=== PATIENT | female | born 1980 | race Caucasian/White ===

== ENCOUNTER 2016-12-18 16:56 | Emergency (ER) | payer BC ==
[~2016-12-18] VITALS: Ht 157.5 cm; Wt 70.0 kg
[2016-12-18 16:56] VITALS: BP 131/83
[2016-12-18] MEDS ORDERED: NAC500CA PO (17:14)
[2016-12-18] MEDS ORDERED: ZINCLOZ9 PO (17:14)
[2016-12-18] MEDS ORDERED: VITATAB11 PO (17:14)
[2016-12-18] MEDS ORDERED: VITA-122 PO (17:14)
== END 2016-12-18 18:00 | disposition left against medical advice (07) ==
LOC: M ED 16:56
DX: R10.9 Unspecified abdominal pain (principal); Z53.21 Procedure and treatment not carried out due to patient leaving prior to being seen by health care provider

== ENCOUNTER 2017-01-02 06:49 | Emergency (ER) | payer BC ==
[~2017-01-02] VITALS: Ht 157.5 cm; Wt 70.0 kg
[~2017-01-02 06:49] MED LIST: NAC500CA PO; VITA-122 PO; VITATAB11 PO; ZINCLOZ9 PO
[2017-01-02] MEDS ORDERED: FLUC150T PO (06:59)
[2017-01-02] MEDS ORDERED: FLUC10TA PO (06:59)
[2017-01-02] MEDS ORDERED: diphenhydrAMINE INJ 50MG/ML VIAL (J1200) IV ONE (07:30)
[2017-01-02] MEDS ORDERED: FAMOTIDINE IV BAG 20 MG in APPROPRIATE DILUENT 1 EA IV ONE (07:30)
[2017-01-02] MEDS ORDERED: methylPREDNISolone INJ 125 MG/2 ML VIAL (J2930) IV ONE (07:30)
[2017-01-02] MEDS ORDERED: PRED20TA PO (08:51)
[2017-01-02] MEDS ORDERED: PEPC1TAB4 PO (08:51)
[2017-01-02 09:04] VITALS: BP 112/72
== END 2017-01-02 09:05 | disposition home or self-care (01) ==
LOC: M ED 06:49
DX: R22.0 Localized swelling, mass and lump, head (principal); T78.40XA Allergy, unspecified, initial encounter; Y92.9 Unspecified place or not applicable; Y93.9 Activity, unspecified; I50.9 Heart failure, unspecified; M32.9 Systemic lupus erythematosus, unspecified; F17.200 Nicotine dependence, unspecified, uncomplicated; Z79.899 Other long term (current) drug therapy; Z88.8 Allergy status to other drugs, medicaments and biological substances
CPT/HCPCS: 96365; 96375; 99284; J1200; J2930

== ENCOUNTER 2017-03-02 11:10 | Emergency (ER) | payer BC ==
[~2017-03-02] VITALS: Ht 157.5 cm; Wt 66.8 kg
[~2017-03-02 11:10] MED LIST changes: +FLUC10TA PO; +FLUC150T PO; +PEPC1TAB4 PO; +PRED20TA PO
[2017-03-02 12:13] LABS: MEAN CORPUSCULAR HEMOGLOBIN 31.4 pg (27.0-33.0); MEAN CORPUSCULAR HGB CONC 34.5 g/dl (32.0-36.5); PLATELET COUNT, AUTOMATED 210 10^3/uL (150-450); RED CELL DISTRIBUTION WIDTH 12.1 % (11.5-14.5); WHITE BLOOD COUNT 12.8 10^3/uL (4.0-10.0)
[2017-03-02 12:31] LABS: CONTROL LINE HCG INT CTR LINE PRESENT
[2017-03-02 12:49] LABS: ALBUMIN/GLOBULIN RATIO 1.25 (1.00-1.93); ALKALINE PHOSPHATASE 58 U/L (45-117); ALT/SGPT 20 U/L (12-78); ANION GAP 10 MEQ/L (8-16); AST/SGOT 11 U/L (7-37); BILIRUBIN,DIRECT 0.1 MG/DL (0.0-0.2); BILIRUBIN,TOTAL 0.4 MG/DL (0.2-1.0); BLOOD UREA NITROGEN 12 MG/DL (7-18); CALCIUM LEVEL 8.5 MG/DL (8.5-10.1); CARBON DIOXIDE LEVEL 24 MEQ/L (21-32); CHLORIDE LEVEL 108 MEQ/L (98-107); CREATININE FOR GFR 1.06 MG/DL (0.55-1.02); GLOMERULAR FILTRATION RATE > 60.0 (>60); GLUCOSE, FASTING 94 MG/DL (70-105); POTASSIUM SERUM 3.8 MEQ/L (3.5-5.1); SODIUM LEVEL 142 MEQ/L (136-145); TOTAL PROTEIN 7.2 GM/DL (6.4-8.2)
[2017-03-02 13:45] LABS: METHADONE URINE NEGATIVE (NEGATIVE)
[2017-03-02 14:55] VITALS: BP 122/59
== END 2017-03-02 14:57 | disposition home or self-care (01) ==
LOC: M ED 11:10
DX: F32.9 Major depressive disorder, single episode, unspecified (principal); Z63.0 Problems in relationship with spouse or partner; Z79.899 Other long term (current) drug therapy; Z88.8 Allergy status to other drugs, medicaments and biological substances
CPT/HCPCS: 80048; 80076; 80307; 84443; 84703; 85027; 99284; G0480

== ENCOUNTER 2017-03-25 01:31 | Emergency (ER) | payer OTHER, BC ==
[2017-03-25] MEDS ORDERED: KETOROLAC 30 MG/ML VIAL (J1885) As Ordered (04:53)
[2017-03-25] MEDS: KETOROLAC 60 MG/2 ML VIAL (J1885) IM (04:56)
== END 2017-03-25 05:23 | disposition home or self-care (01) ==
LOC: M ED 01:31
DX: S90.32XA Contusion of left foot, initial encounter (principal); W22.8XXA Striking against or struck by other objects, initial encounter; Y92.9 Unspecified place or not applicable; Y93.9 Activity, unspecified; Y99.0 Civilian activity done for income or pay; J45.909 Unspecified asthma, uncomplicated; F32.9 Major depressive disorder, single episode, unspecified; F17.200 Nicotine dependence, unspecified, uncomplicated; Z79.899 Other long term (current) drug therapy; Z88.8 Allergy status to other drugs, medicaments and biological substances
CPT/HCPCS: J1885

== ENCOUNTER → 2018-05-17 | Outpatient (REF) | payer OTHER ==
[~2018-05-17] MED LIST changes: +KETO10TAB PO; +LEXA1TAB PO; -PEPC1TAB4 PO; +PEPC1TAB5 PO
[2018-05-17 15:34] LABS: APPEARANCE, URINE HAZY (CLEAR); BACTERIA, URINE AUTO NEGATIVE (NEGATIVE); BILIRUBIN, URINE AUTO NEGATIVE (NEGATIVE); BLOOD, URINE BLOOD NEGATIVE (NEGATIVE); COLOR, URINE YELLOW (YELLOW); GLUCOSE, URINE (UA) AUTO NEGATIVE (NEGATIVE); KETONE, URINE AUTO NEGATIVE (NEGATIVE); LEUKOCYTE ESTERASE, URINE AUTO NEGATIVE (NEGATIVE); NITRITE, URINE AUTO NEGATIVE (NEGATIVE); PROTEIN, URINE AUTO NEGATIVE (NEGATIVE); RBC, URINE AUTO 1 /HPF (0-3); SPECIFIC GRAVITY URINE AUTO 1.021 (1.002-1.035); SQUAMOUS EPITHELIAL CELL UR AU 5 /HPF (0-6); UROBILINOGEN, URINE AUTO 0.2 mg/dL (0.0-2.0); WBC, URINE AUTO 0 /HPF (0-3)
== END ==
LOC: M LAB REF 14:59
PROVIDERS: ATTEND Physician Assistant
DX: N39.0 Urinary tract infection, site not specified (principal)

== ENCOUNTER 2018-06-04 08:23 | Emergency (ER) | payer OTHER ==
[~2018-06-04] VITALS: Ht 157.5 cm; Wt 81.8 kg
[2018-06-04 08:49] VITALS: BP 134/69
[2018-06-04] MEDS ORDERED: ACETAMINOPHEN TAB 650MG DOSE (2X325MG) PO ONE (09:30)
--- NOTE | 2018-06-04 09:32 | REP ---
CT Head without contrast HISTORY: Fall COMPARISON: 06/12/2005 There is no intraparenchymal hemorrhage, acute infarct, mass or midline shift. The ventricular system is normal in appearance. There is no extra cerebral collection. There is no fracture. The visualized sinuses are clear. IMPRESSION: There is no intracranial lesion. Electronically Signed by Blas Mcgarry MD 06/04/2018 09:23 A
--- NOTE | 2018-06-04 09:34 | REP ---
CT cervical spine without contrast HISTORY: Fall COMPARISON: None There is no acute fracture or subluxation. There is no disc bulge or herniation. The spinal canal and neural foramina are patent. The intervertebral discs and vertebral bodies are normal in height. IMPRESSION: There is no acute fracture or subluxation. Electronically Signed by Blas Mcgarry MD 06/04/2018 09:26 A
[2018-06-05] MEDS ORDERED: PRED20TA (12:11)
[2018-06-05] MEDS ORDERED: METH75TA PO (15:41)
[2018-06-05] MEDS ORDERED: KETO10TAB PO (15:41)
[2018-06-05] MEDS ORDERED: DICL1GEL3 TOP (15:43)
== END 2018-06-04 09:41 | disposition home or self-care (01) ==
LOC: M ED 08:23
DX: S09.90XA Unspecified injury of head, initial encounter (principal); M54.9 Dorsalgia, unspecified; W00.0XXA Fall on same level due to ice and snow, initial encounter; Y92.89 Other specified places as the place of occurrence of the external cause; Y99.0 Civilian activity done for income or pay; J45.909 Unspecified asthma, uncomplicated; M32.9 Systemic lupus erythematosus, unspecified; F17.210 Nicotine dependence, cigarettes, uncomplicated; Z88.5 Allergy status to narcotic agent; Z88.8 Allergy status to other drugs, medicaments and biological substances; Z79.899 Other long term (current) drug therapy

== ENCOUNTER 2018-06-05 12:00 | Emergency (ER) | payer OTHER ==
[~2018-06-05] VITALS: Ht 157.5 cm; Wt 80.1 kg
[2018-06-05] MEDS ORDERED: PRED20TA (12:11)
[2018-06-05] MEDS ORDERED: KETOROLAC 60 MG/2 ML VIAL (J1885) IM ONE (14:45)
[2018-06-05] MEDS ORDERED: KETO10TAB PO (15:41)
[2018-06-05] MEDS ORDERED: METH75TA PO (15:41)
[2018-06-05] MEDS ORDERED: DICL1GEL3 TOP (15:43)
[2018-06-05 15:50] VITALS: BP 134/79
--- NOTE | 2018-06-05 16:03 | REP ---
LUMBOSACRAL SPINE SERIES: Five views of the lumbosacral spine are performed. There is no compression fracture or malalignment with normal lumbar lordosis. There is no spondylolysis or spondylolisthesis. There is slight disc space narrowing at L5-S1 with sclerosis of the facets at that level. Posterior elements are intact. Metallic clips are seen in the right upper quadrant. IMPRESSION: Mild degenerative changes at L5-S1. No fracture or dislocation. Electronically Signed by Art Banuelos MD 06/06/2018 11:09 A
== END 2018-06-05 15:51 | disposition home or self-care (01) ==
LOC: M ED 12:00
DX: S30.0XXA Contusion of lower back and pelvis, initial encounter (principal); M62.838 Other muscle spasm; W00.9XXA Unspecified fall due to ice and snow, initial encounter; Y92.89 Other specified places as the place of occurrence of the external cause; Y93.01 Activity, walking, marching and hiking; Y99.0 Civilian activity done for income or pay; I50.9 Heart failure, unspecified; M32.9 Systemic lupus erythematosus, unspecified; G43.109 Migraine with aura, not intractable, without status migrainosus; Z86.711 Personal history of pulmonary embolism; Z72.0 Tobacco use; Z79.899 Other long term (current) drug therapy; Z88.5 Allergy status to narcotic agent; Z88.8 Allergy status to other drugs, medicaments and biological substances
CPT/HCPCS: 72110; 96372; 99283; J1885

== ENCOUNTER → 2018-08-16 | Outpatient (CLI) | payer OTHER ==
[~2018-08-16] MED LIST changes: +DICL1GEL3 TOP; +E-Z-GAS II EFFERVESCENT PACKET (SODIUM BICARB./CITRIC ACID/SIMETHICONE) As Ordered ONE; +E-Z-HD 98% w/w 340GM SUSP BTL As Ordered ONE; +E-Z-PAQUE 96% w/w SUSP 176GM BTL As Ordered ONE; +METH75TA PO; +PRED20TA
--- NOTE | 2018-08-17 09:03 | REP ---
Examination Requested: Upper G.I. Series With KUB Reason For Exam: Epigastric pain Upper GI Air Contrast The procedure was performed by JOSE Ignacio, under the direct supervision of Dr. Banuelos. The images were reviewed with Dr. Banuelos. The glue plant operator film shows no organomegaly or pathological masses. The intestinal gas pattern appears normal. Liquid barium and gas producing crystals were given in the erect position as well as liquid barium in the prone oblique position in order to perform a double contrast upper GI examination. The oral and pharyngeal stages of deglutition were unremarkable. Esophageal transport is efficient and there is no esophagitis, stricture, or mucosal ring noted. There is a small hiatal hernia. Gastroesophageal reflux was not demonstrated throughout the course of this exam. The stomach solorio are normally outlined. The rugal folds are smooth and regular. There is no gastritis, neoplasm, ulcer disease noted. The duodenal solorio are normally outlined. The mucosal folds are smooth and regular. There is no duodenitis, peptic ulcer disease, or neoplasm noted. The visualized portion of the proximal small bowel appears normal in course and caliber. Impression: 1. Small hiatal hernia. 1.5 minutes of fluoroscopy time was utilized for this procedure. Reviewed by JOSE Mckeon 08/16/2018 05:33 P Electronically Signed by Art Banuelos MD 08/17/2018 08:54 A
== END ==
LOC: M RAD 10:18
PROVIDERS: ATTEND Physician Assistant Medical
DX: K44.9 Diaphragmatic hernia without obstruction or gangrene (principal)

== ENCOUNTER 2020-05-06 17:21 | Emergency (ER) | payer OTHER, SELFPAY ==
[~2020-05-06] VITALS: Ht 157.5 cm; Wt 75.8 kg
[~2020-05-06 17:21] MED LIST changes: -E-Z-GAS II EFFERVESCENT PACKET (SODIUM BICARB./CITRIC ACID/SIMETHICONE) As Ordered ONE; -E-Z-HD 98% w/w 340GM SUSP BTL As Ordered ONE; -E-Z-PAQUE 96% w/w SUSP 176GM BTL As Ordered ONE; +METH-1165 PO; -METH75TA PO
--- OUTSIDE RECORDS SUMMARY | 2020-05-06 17:29 | CCD ---
Author Author [facility] Organization [facility] Address Unknown Phone Unavailable Care Team Providers Care Graphite Pan Drier Tender Name Role Phone RING, K MAXINE PA Unavailable Unavailable RING, K MAXINE PA Unavailable Unavailable RING, K MAXINE PA Unavailable Unavailable RING, K MAXINE PA Unavailable Unavailable RING, K MAXINE PA Unavailable Unavailable RING, K MAXINE PA Unavailable Unavailable RING, K MAXINE PA Unavailable Unavailable RING, K MAXINE PA Unavailable Unavailable RING, K MAXINE PA Unavailable Unavailable RING, K MAXINE PA Unavailable Unavailable RING, K MAXINE PA Unavailable Unavailable RING, K MAXINE PA Unavailable Unavailable RING, K MAXINE PA Unavailable Unavailable RING, K MAXINE PA Unavailable Unavailable RING, K MAIXNE PA Unavailable Unavailable RING, K MAXINE PA Unavailable Unavailable RING, K MAXINE PA Unavailable Unavailable RING, K MAXINE PA Unavailable Unavailable RING, K MAXINE PA Unavailable Unavailable RING, K MAXINE PA Unavailable Unavailable RING, K MAXINE PA Unavailable Unavailable ARNULFO TIMMONS MD Unavailable Unavailable ARNULFO TIMMONS MD Unavailable Unavailable ARNULFO TIMMONS MD Unavailable Unavailable ARNULFO TIMMONS MD Unavailable Unavailable ARNULFO TIMMONS MD Unavailable Unavailable ARNULFO TIMMONS MD Unavailable Unavailable ARNULFO TIMMONS MD Unavailable Unavailable ARNULFO TIMMONS MD Unavailable Unavailable ARNULFO TIMMONS MD Unavailable Unavailable ARNULFO TIMMONS MD Unavailable Unavailable ARNULFO TIMMONS MD Unavailable Unavailable ARNULFO TIMMONS MD Unavailable Unavailable ARNULFO TIMMONS MD Unavailable Unavailable ARNULFO TIMMONS MD Unavailable Unavailable ARNULFO TIMMONS MD Unavailable Unavailable ARNULFO TIMMONS MD Unavailable Unavailable ARNULFO TIMMONS MD Unavailable Unavailable ARNULFO TIMMONS MD Unavailable Unavailable ARNULFO TIMMONS MD Unavailable Unavailable ARNULFO TIMMONS MD Unavailable Unavailable ARNULFO TIMMONS MD Unavailable Unavailable ARNULFO TIMMONS MD Unavailable Unavailable ARNULFO TIMMONS MD Unavailable Unavailable ARNULFO TIMMONS MD Unavailable Unavailable ARNULFO TIMMONS MD Unavailable Unavailable ARNULFO TIMMONS MD Unavailable Unavailable ARNULFO TIMMONS MD Unavailable Unavailable ARNULFO TIMMONS MD Unavailable Unavailable ARNULFO TIMMONS MD Unavailable Unavailable ARNULFO TIMMONS MD Unavailable Unavailable ARNULFO TIMMONS MD Unavailable Unavailable ARNULFO TIMMONS MD Unavailable Unavailable ARNULFO TIMMONS MD Unavailable Unavailable ARNULFO TIMMONS MD Unavailable Unavailable ARNULFO TIMMONS MD Unavailable Unavailable ARNULFO TIMMONS MD Unavailable Unavailable ARNULFO TIMMONS MD Unavailable Unavailable ARNULFO TIMMONS MD Unavailable Unavailable ARNULFO TIMMONS MD Unavailable Unavailable ARNULFO TIMMONS MD Unavailable Unavailable ARNULFO TIMMONS MD Unavailable Unavailable ARNULFO TIMMONS MD Unavailable Unavailable ARNULFO TIMMONS MD Unavailable Unavailable ARNULFO TIMMONS MD Unavailable Unavailable ARNULFO TIMMONS MD Unavailable Unavailable ARNULFO TIMMONS MD Unavailable Unavailable ARNULFO TIMMONS MD Unavailable Unavailable ARNULFO TIMMONS MD Unavailable Unavailable ARNULFO TIMMONS MD Unavailable Unavailable ARNULFO TIMMONS MD Unavailable Unavailable ARNULFO TIMMONS MD Unavailable Unavailable ARNULFO TIMMONS MD Unavailable Unavailable ARNULFO TIMMONS MD Unavailable Unavailable ARNULFO TIMMONS MD Unavailable Unavailable ARNULFO TIMMONS MD Unavailable Unavailable ARNULFO TIMMONS MD Unavailable Unavailable ARNULFO TIMMONS MD Unavailable Unavailable ARNULFO TIMMONS MD Unavailable Unavailable ARNULFO TIMMONS MD Unavailable Unavailable ARNULFO TIMMONS MD Unavailable Unavailable ARNULFO TIMMONS MD Unavailable Unavailable ARNULFO TIMMONS MD Unavailable Unavailable ARNULFO TIMMONS MD Unavailable Unavailable ARNULFO TIMMONS MD Unavailable Unavailable ARNULFO TIMMONS MD Unavailable Unavailable ARNULFO TIMMONS MD Unavailable Unavailable ARNULFO TIMMONS MD Unavailable Unavailable ARNULFO TIMMONS MD Unavailable Unavailable ARNULFO TIMMONS MD Unavailable Unavailable ARNULFO TIMMONS MD Unavailable Unavailable ARNULFO TIMMONS MD Unavailable Unavailable ARNULFO TIMMONS MD Unavailable Unavailable ARNULFO TIMMONS MD Unavailable Unavailable ARNULFO TIMMONS MD Unavailable Unavailable ARNULFO TIMMONS MD Unavailable Unavailable ARNULFO TIMMONS MD Unavailable Unavailable ARNULFO TIMMONS MD Unavailable Unavailable ARNULFO TIMMONS MD Unavailable Unavailable ARNULFO TIMMONS MD Unavailable Unavailable ARNULFO TIMMONS MD Unavailable Unavailable ARNULFO TIMMONS MD Unavailable Unavailable ARNULFO TIMMONS MD Unavailable Unavailable ARNULFO TIMMONS MD Unavailable Unavailable ARNULFO TIMMONS MD Unavailable Unavailable Re-disclosure Warning The records that you are about to access may contain information from federally-assisted alcohol or drug abuse programs. If such information is present, then the following federally mandated warning applies: This information has been disclosed to you from records protected by federal confidentiality rules (42 CFR part 2). The federal rules prohibit you from making any further disclosure of this information unless further disclosure is expressly permitted by the written consent of the person to whom it pertains or as otherwise permitted by 42 CFR part 2. A general authorization for the release of medical or other information is NOT sufficient for this purpose. The Federal rules restrict any use of the information to criminally investigate or prosecute any alcohol or drug abuse patient.The records that you are about to access may contain highly sensitive health information, the redisclosure of which is protected by Article 27-F of the [facility] Public Health law. If you continue you may have access to information: Regarding HIV / AIDS; Provided by facilities licensed or operated by the [facility] Office of Mental Health; or Provided by the [facility] Office for People With Developmental Disabilities. If such information is present, then the following [facility] mandated warning applies: This information has been disclosed to you from confidential records which are protected by state law. State law prohibits you from making any further disclosure of this information without the specific written consent of the person to whom it pertains, or as otherwise permitted by law. Any unauthorized further disclosure in violation of state law may result in a fine or residential sentence or both. A general authorization for the release of medical or other information is NOT sufficient authorization for further disc losure. Encounters Encounter Providers Location Date Indications Data Source(s ) Outpatient Attender: MAXINE Reyna 10/30/2019 08:15:00 AM EDT [facility] ([facility]) Outpatient Attender: CORRINE TIMMONS MD 04/24/2019 12:00:00 A M [facility] Outpatient Attender: CORRINE TIMMONS MD [id number] 2018 12:00:00 AM EDT - 06/27/2018 10:00:39 AM EDT Systemic involvement of connective tissu e, unspecified [facility] Systemic involvement of connective tissu e, unspecified Medications Medication Brand Name Start Date Product Form Dose Route Admi nistrative Instructions Pharmacy Instructions Status Indications Reaction Description Data Source(s) Ondansetron 4 MG Oral Tablet [Zofran] Zofran 10/30/2019 12:00:00 AM EDT ORAL active [facility] ([facility]) Unknown Medication For Migraine 10/30/2019 12:00:00 AM EDT active [facility] ([facility] Insurance Providers Payer name Policy type / Coverage type Policy ID Covered green party ID Covered green party's relationship to mukherjee Policy Mukherjee Plan Information [employer] [id number] SP U [id number] CIGNA U [id number] Self 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 [id number] SP [id number] ADITI DAVIDETT WORKER COMP [id number] SP [id number] MVP HEALTH CARE [id number] SP [id number] MVP H [id number] Self [id number] MVP EXCHANGE [id number] Self [id number] EXCELLUS H [id number] Self [id number] BLUE CROSS BLUE SHIELD [place] [id number] 18 [id number] BLUE CROSS BLUE SHIELD [id number] 18 [id number] [facility] O UNAVAILABLE S UNAVAILABLE PMA MANAGEMENT ANUP [facility] [id number] SP [id number] [place]/307 [id number] SP [id number] [place]/307 [id number] SP [id number] EXCELLUS BCBS B [id number] S VYS [id number] MEDICAID M [id number] S [id number] [place] P[place]/307 [id number] SP [id number] UN COMMUNITY PLAN MCDO [id number] SP [id number] SELF PAY UNAVAILABLE SP UNAVAILA BLE GHI FAMILY HLTH PLUS [id number] SP [id number] MEDICAID [id number] SP [id number] MEDICAID [id number] SP [id number] SELF PAY [id number] SP [id number] PCAP [place] [id number] SP [id number] Results ID Date Data Source 170 04/30/2020 12:00:00 AM EST [facility] Name Value Range Interpretation Code Description Data Antonia rce(s) Supporting Document(s) SARS-CoV2 Rapid Antigen Negative [facility] This lab was ordered by [facility] and reported by [facility]. Procedure Vital Signs ID Date Data Source UNK Name Value Range Interpretation Code Description Data Source(s) Body mass index (BMI) [Ratio] 29.3 kg/m2 29.3 k g/m2 [facility] ([facility]) Body height 62 [in_i] 62 [in_i] [facility] ([facility]) 5'2" Body weight 160.00 [lb_av] 160.00 [lb_av] [facility] ([facility]) Body temperature 97.9 [degF] 97.9 [degF] [facility] ([facility]) Oxygen saturation in Arterial blood by Pulse oximetry 99 % 99 % [facility] ([facility]) Respiratory rate 16 /min 16 /min [facility] ( [facility]) Heart rate 72 /min 72 /min [facility] ([facility]) Diastolic blood pressure 74 mm[Hg] 74 mm[Hg] [facility] ([facility]) Systolic blood pressure 110 mm[Hg] 110 mm[Hg] [facility] ([facility]) ID Date Data Source [id number] 06/19/2019 01:45:44 PM [facility] Name Value Range Interpretation Code Description Data Source(s) WEIGHT RECORDED 175.4 lb 175.4 lb [facility] Body height Measured 62.01 in 62.01 in [facility]
[2020-05-06] MEDS ORDERED: ASPIRIN 81 MG CHEW TABLET PO ONE (18:00)
--- NOTE | 2020-05-06 18:20 | REP ---
INDICATION: CHEST PAIN. COMPARISON: Chest 11/21/2016 TECHNIQUE: AP portable seated chest FINDINGS: Lung greenwood are well inflated. The CP angles are sharply defined there is no pleural effusion, lateral pleural thickening, apical scarring or pneumothorax. No dense consolidation, atelectasis or parenchymal mass. The heart, mediastinal and hilar contours are normal. The aorta and airway are grossly intact. Bones are unremarkable. No free air under the diaphragm. IMPRESSION: 1. No acute cardiopulmonary change. <Electronically signed by Warren Reno > 05/06/20 [id number]
[2020-05-06 18:34] LABS: HEMATOCRIT 40.4 % (36.0-47.0); MEAN CORPUSCULAR HGB CONC 34.7 g/dl (32.0-36.5); MEAN CORPUSCULAR VOLUME 89.6 fl (80.0-96.0); PLATELET COUNT, AUTOMATED 216 10^3/uL (150-450); RED BLOOD COUNT 4.51 10^6/uL (4.00-5.40)
--- OUTSIDE RECORDS SUMMARY | 2020-05-06 18:41 | CCD ---
Author Author [facility] Organization [facility] Address Unknown Phone Unavailable Care Team Providers Care Refuse Driver Name Role Phone RING, K MAXINE PA [...] is protected by Article 27-F of the [facility] Public Health law. If you continue you may have access to information: Regarding HIV / AIDS; Provided by facilities licensed or operated by the [facility] Office of Mental Health; or Provided by the [facility] Office for People With Developmental Disabilities. If such information is present, then the following [facility] mandated warning applies: This information has [...] law may result in a fine or halfway sentence or both. A general authorization for the release of medical or other information is NOT sufficient authorization for further disc losure. Encounters Encounter Providers Location Date Indications Data Source(s ) Outpatient Attender: MAXINE Reyna 10/30/2019 08:15:00 AM EDT [facility] ([facility]) Outpatient Attender: CORRINE TIMMONS MD 04/24/2019 12:00:00 A M [facility] Outpatient Attender: CORRINE TIMMONS MD [id number] 2018 12:00:00 AM EDT - 06/27/2018 10:00:39 AM EDT Systemic involvement of connective tissu e, unspecified [facility] Systemic involvement of connective tissu e, unspecified Medications Medication Brand Name Start Date Product Form Dose Route Admi nistrative Instructions Pharmacy Instructions Status Indications Reaction Description Data Source(s) Ondansetron 4 MG Oral Tablet [Zofran] Zofran 10/30/2019 12:00:00 AM EDT ORAL active [facility] ([facility]) Unknown Medication For Migraine 10/30/2019 12:00:00 AM EDT active [facility] ([facility]) Insurance Providers Payer name Policy type / Coverage type Policy ID Covered republican ID Covered republican's relationship to mukherjee Policy Mukherjee Plan Information SELF PAY ONLY [id number] SP [id number] [employer]NA HE[employer] [id number] SP U [id number] CIGNA U [id number] Self 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 [id number] SP [id number] [place] PPO [place]/307 [id number] SP [id number] BCBS [place] PPO 302/307 [id number] SP [id number] EXCELLUS BCBS B [id number] S VYS [id number] MEDICAID M [id number] S [id number] BCBS [place] PPO 302/307 [id number] SP [id number] [facility] COMMUNITY [facility]AN [facility] [id number] SP [id number] SELF PAY UNAVAILABLE SP UNAVAILA BLE GHI FAMILY HLTH PLUS [id number] SP [id number] MEDICAID [id number] SP [id number] MEDICAID [id number] SP [id number] SELF PAY [id number] SP [id number] PCAP [place] [id number] SP [id number] Results ID Date Data Source 170 04/30/2020 12:00:00 AM EST [facility] Name Value Range Interpretation Code Description Data Antonia rce(s) Supporting Document(s) SARS-CoV2 Rapid Antigen Negative [facility] This lab was ordered by [facility] and reported by [facility]. Procedure Vital Signs ID Date Data Source UNK Name Value Range Interpretation Code Description Data Source(s) Body mass index (BMI) [Ratio] 29.3 kg/m2 29.3 k g/m2 [facility] ([facility], [facility]) Body height 62 [in_i] 62 [in_i] [facility] ([facility], [facility]) 5'2" Body weight 160.00 [lb_av] 160.00 [lb_av] [facility] ([facility]) Body temperature 97.9 [degF] 97.9 [degF] [facility] ([facility]) Oxygen saturation in Arterial blood by Pulse oximetry 99 % 99 % [facility] ([facility]) Respiratory rate 16 /min 16 /min [facility] ( [facility]) Heart rate 72 /min 72 /min [facility] ([facility], [facility]) Diastolic blood pressure 74 mm[Hg] 74 mm[Hg] [facility] ([facility]) Systolic blood pressure 110 mm[Hg] 110 mm[Hg] M [facility] ([facility], [facility]) ID Date Data Source [id number] 06/19/2019 01:45:44 PM [facility] Name Value Range Interpretation Code Description Data Source(s) WEIGHT RECORDED 175.4 lb 175.4 lb [facility] Body height Measured 62.01 in 62.01 in [facility]
[2020-05-06 18:45] LABS: INR 0.91; PROTHROMBIN TIME 12.4 SECONDS (12.5-14.3)
[2020-05-06 18:48] LABS: D-DIMER QUANT 591.68 ng/ml (<500)
[2020-05-06 19:00] VITALS: BP 122/74
[2020-05-06 19:01] LABS: ALBUMIN 3.6 GM/DL (3.2-5.2); ALT/SGPT 31 U/L (12-78); BILIRUBIN,DIRECT < 0.1 MG/DL (0.0-0.2); BILIRUBIN,TOTAL 0.3 MG/DL (0.2-1.0); BLOOD UREA NITROGEN 6 MG/DL (7-18); CALCIUM LEVEL 8.8 MG/DL (8.5-10.1); CARBON DIOXIDE LEVEL 23 MEQ/L (21-32); CHLORIDE LEVEL 109 MEQ/L (98-107); CK-MB VALUE MASS < 1.0 NG/ML (<3.6); CPK CREATINE PHOSPHOKINASE 84 U/L (26-192); CREATININE FOR GFR 0.94 MG/DL (0.55-1.30); GLOMERULAR FILTRATION RATE > 60.0 (>60); GLUCOSE, FASTING 92 MG/DL (70-100); LIPASE 106 U/L (73-393); MB/CK RELATIVE INDEX 1.19 (< OR =4); POTASSIUM SERUM 3.5 MEQ/L (3.5-5.1); SODIUM LEVEL 138 MEQ/L (136-145); TOTAL PROTEIN 7.4 GM/DL (6.4-8.2); TROPONIN I < 0.02 NG/ML (< 0.10)
[2020-05-06] MEDS ORDERED: ISOVUE-370 76% 100ML VIAL As Ordered ONE (19:52)
[2020-05-06 20:19] LABS: ATYPICAL LYMPH 15 % (0-5); EOSINOPHILS 3 % (0-3); LYMPHOCYTES 40 % (16-44); MONOCYTES 1 % (0-5); NEUTROPHILS 41 % (28-66); PLATELET ESTIMATE NORMAL (NORMAL)
--- NOTE | 2020-05-07 19:39 | ECGEPIP ---
[facility] - ED Test Date: 2020-05-06 Pat Name: SHASHI CHEN Department: Room: - Gender: Female Outbound Sales Advisor: JEFF : 1980 Requested By: JAVED WYLIE Order Number: [id number] Reading MD: Kavitha Carson Measurements Intervals [place] Rate: 77 P: 38 ID: [id number] QRS: 63 QRSD: 86 T: 33 QT: 420 QTc: 475 Interpretive Statements Normal sinus rhythm ST & T wave abnormality, consider anterior ischemia, clinical correlation No prior Electronically Signed on 05-07-2020 19:38:57 EST by Kavitha Carson
== END 2020-05-06 20:01 | disposition left against medical advice (07) ==
LOC: M ED 17:21
DX: R07.89 Other chest pain (principal); Z53.9 Procedure and treatment not carried out, unspecified reason; I11.9 Hypertensive heart disease without heart failure; K21.9 Gastro-esophageal reflux disease without esophagitis; J45.909 Unspecified asthma, uncomplicated; F17.200 Nicotine dependence, unspecified, uncomplicated; Z88.6 Allergy status to analgesic agent; Z88.8 Allergy status to other drugs, medicaments and biological substances

== ENCOUNTER 2020-05-13 09:47 | Emergency (ER) | payer OTHER, SELFPAY ==
[~2020-05-13] VITALS: Ht 157.5 cm; Wt 75.8 kg
--- NOTE | 2020-05-13 10:58 | REP ---
INDICATION: fall injury COMPARISON: None. TECHNIQUE: AP, lateral, bilateral oblique views right wrist. FINDINGS: The carpal bones, surrounding osseous structures, soft tissues, and joint spaces are normal. There is no evidence for acute fracture or dislocation. No subcutaneous emphysema or radiodense foreign body. IMPRESSION: No acute fracture or dislocation. If the patient remains symptomatic consider re-evaluation in 3-5 days including scaphoid view if necessary. <Electronically signed by Geovanni Avina > 05/13/20 105
[2020-05-13] MEDS ORDERED: ACETAMINOPHEN 500 MG TAB PO ONE (11:40)
[2020-05-13 11:44] LABS: BASO # 0.1 10^3/uL (0.0-0.2); BASO % 0.7 % (0.0-1.0); EOS # 0.1 10^3/uL (0.0-0.5); EOS % 1.7 % (0.0-3.0); HEMATOCRIT 41.6 % (36.0-47.0); LYMPH # 2.9 10^3/uL (1.5-5.0); LYMPH % 35.2 % (24.0-44.0); MEAN CORPUSCULAR HEMOGLOBIN 30.6 pg (27.0-33.0); MEAN CORPUSCULAR HGB CONC 33.7 g/dl (32.0-36.5); MONO # 0.7 10^3/uL (0.0-0.8); MONO % 8.3 % (2.0-8.0); NEUTROPHILS # 4.5 10^3/uL (1.5-8.5); PLATELET COUNT, AUTOMATED 237 10^3/uL (150-450); RED BLOOD COUNT 4.57 10^6/uL (4.00-5.40); WHITE BLOOD COUNT 8.2 10^3/uL (4.0-10.0)
--- NOTE | 2020-05-13 11:53 | REP ---
INDICATION: fall COMPARISON: None. TECHNIQUE: AP and lateral views of the right tibia/fibula. FINDINGS: The osseous structures and joint spaces are intact and normal. There is no evidence for acute fracture or dislocation. Surrounding soft tissues are unremarkable. No subcutaneous emphysema or radiodense foreign body. IMPRESSION: . No acute fracture or dislocation. <Electronically signed by Geovanni Avina > 05/13/20 1148
--- NOTE | 2020-05-13 11:53 | REP ---
INDICATION: Abdominal Pain COMPARISON: 05/06/2020 TECHNIQUE: PA and lateral. FINDINGS: The mediastinum and cardiac silhouette are normal. The lung greenwood are clear and without acute consolidation, effusion, or pneumothorax. The skeletal structures are intact and normal. IMPRESSION: No acute cardiopulmonary process. <Electronically signed by Geovanni Avina > 05/13/20 1141
[2020-05-13 12:00] LABS: INR 0.96
[2020-05-13 12:01] LABS: PARTIAL THROMBOPLASTIN TIME 32.2 SECONDS (24.2-38.5)
[2020-05-13 12:04] LABS: D-DIMER QUANT 621.68 ng/ml (<500)
[2020-05-13 12:13] LABS: ALBUMIN 3.9 GM/DL (3.2-5.2); ALT/SGPT 28 U/L (12-78); BILIRUBIN,DIRECT 0.1 MG/DL (0.0-0.2); BILIRUBIN,TOTAL 0.4 MG/DL (0.2-1.0); BLOOD UREA NITROGEN 7 MG/DL (7-18); CARBON DIOXIDE LEVEL 26 MEQ/L (21-32); CHLORIDE LEVEL 108 MEQ/L (98-107); CK-MB VALUE MASS < 1.0 NG/ML (<3.6); CPK CREATINE PHOSPHOKINASE 112 U/L (26-192); CREATININE FOR GFR 0.93 MG/DL (0.55-1.30); GLOMERULAR FILTRATION RATE > 60.0 (>60); GLUCOSE, FASTING 93 MG/DL (70-100); LIPASE 94 U/L (73-393); MB/CK RELATIVE INDEX 0.89 (< OR =4); POTASSIUM SERUM 3.7 MEQ/L (3.5-5.1); SODIUM LEVEL 140 MEQ/L (136-145); TOTAL PROTEIN 7.8 GM/DL (6.4-8.2); TROPONIN I < 0.02 NG/ML (< 0.10)
[2020-05-13] MEDS ORDERED: ISOVUE-370 76% 100ML VIAL As Ordered ONE (12:24)
--- NOTE | 2020-05-13 12:46 | REP ---
INDICATION: CP, h/o PE, elevated dimer, r/o PE COMPARISON: 01/31/2005 TECHNIQUE: Axial contrast enhanced images from the thoracic inlet to the upper abdomen using pulmonary embolus technique with multiplanar re-formations. 75 ml Isovue 370 intravenous contrast material administered without complication. This CT examination was performed using the following dose reduction techniques: Automated exposure control, adjustment of mA and/or kv according to the patient's size, and use of iterative reconstruction technique. FINDINGS: Satisfactory enhancement of the pulmonary vasculature is achieved and no filling defects are identified to suggest pulmonary embolus. Further evaluation of the mediastinum demonstrates normal thoracic aorta, heart and pericardium. The bilateral lung greenwood are well aerated and clear without consolidation pleural effusion or pneumothorax. Tracheobronchial tree is patent. No nodule or mass lesion is identified. No adenopathy noted. Surrounding musculoskeletal structures intact IMPRESSION: No evidence for pulmonary embolus. No acute mediastinal or pleural parenchymal process. <Electronically signed by Geovanni Avina > 05/13/20 [id number]
[2020-05-13 13:39] VITALS: BP 138/78
--- NOTE | 2020-05-13 17:14 | ECGEPIP ---
[facility] - ED Test Date: 2020-05-13 Pat Name: SHASHI CHEN Department: Room: - Gender: Female Border Inspector: : 1980 Requested By: RAGHU Prado PA-C Order Number: [id number] Reading MD: Kavitha Carson Measurements Intervals [place] Rate: 64 P: 16 [place]: 170 QRS: 56 QRSD: 96 T: 33 QT: 460 QTc: 474 Interpretive Statements Normal sinus rhythm NSTTW abnormalities decreased rate 05/06/20 Electronically Signed on 05-13-2020 17:14:20 EST by Kavitha Carson
== END 2020-05-13 13:51 | disposition home or self-care (01) ==
LOC: M ED 09:47
DX: S80.11XA Contusion of right lower leg, initial encounter (principal); S30.0XXA Contusion of lower back and pelvis, initial encounter; S63.8X1A Sprain of other part of right wrist and hand, initial encounter; R07.89 Other chest pain; W10.8XXA Fall (on) (from) other stairs and steps, initial encounter; Y92.89 Other specified places as the place of occurrence of the external cause; Y93.9 Activity, unspecified; Y99.0 Civilian activity done for income or pay; I50.9 Heart failure, unspecified; J45.909 Unspecified asthma, uncomplicated; M32.9 Systemic lupus erythematosus, unspecified; Z86.711 Personal history of pulmonary embolism; F33.9 Major depressive disorder, recurrent, unspecified; F41.9 Anxiety disorder, unspecified; F17.200 Nicotine dependence, unspecified, uncomplicated; Z88.6 Allergy status to analgesic agent; Z88.8 Allergy status to other drugs, medicaments and biological substances; Z79.899 Other long term (current) drug therapy
CPT/HCPCS: 36415; 71046; 71275; 73110; 73590; 80048; 80076; 82550; 82553; 83690; 84484; 85025; 85379; 85610; 85730; 93005; 99284; Q9967

== ENCOUNTER → 2020-10-01 | Outpatient (CLI) | payer SELFPAY ==
[~2020-10-01] MED LIST changes: +DICY10CA13 PO; +OMEP40CA4 PO
--- NOTE | 2020-10-01 14:50 | REP ---
INDICATION: GASTROPARESIS. COMPARISON: None. TECHNIQUE/RADIOTRACER AND DOSE: 1.06 mCi of Technetium-99m sulfur colloid was ingested in two scrambled eggs and 6 ounces of water and sequential anterior and posterior images are acquired for an 89-minute imaging observation period. Regions of interest are drawn around the stomach to plot gastric emptying. FINDINGS: Expected T1/2 is 90 minutes. Twenty-six% emptying is observed in this patient during the 89-minute imaging observation period, for a calculated T1/2 in this patient of 194 minutes. IMPRESSION: Delayed gastric emptying.. <Electronically signed by Sudarshan Desir > 10/01/20 1028
== END ==
LOC: M RAD 12:44
PROVIDERS: ATTEND Internal Medicine Gastroenterology
DX: K31.84 Gastroparesis (principal); R10.13 Epigastric pain
CPT/HCPCS: 78264; A9541

== ENCOUNTER → 2020-10-02 | Outpatient (CLI) | payer SELFPAY | LOC: M LABSMTC 11:29 | PROVIDERS: ATTEND Anesthesiology | DX: Z20.828 Contact with and (suspected) exposure to other viral communicable diseases (principal); Z11.59 Encounter for screening for other viral diseases ==

== ENCOUNTER 2020-10-07 12:03 | Day surgery (SDC) | payer SELFPAY ==
[~2020-10-07] VITALS: Ht 157.5 cm; Wt 84.8 kg
[~2020-10-07 12:03] MED LIST changes: +NS 1,000 ML IV ONE; +fentaNYL 100 MCG/2 ML INJECTION (J3010) As Ordered ONE
[2020-10-07] MEDS ORDERED: LIDOCAINE 2% 100MG/5ML SDV (FOR ANES.) As Ordered ONE (12:28)
[2020-10-07] MEDS ORDERED: propofoL 200 MG/20 ML VIAL As Ordered ONE (12:28)
[2020-10-07] MEDS ORDERED: ONDANSETRON 4MG/2ML VIAL As Ordered ONE (14:21)
--- NOTE | 2020-10-07 14:24 | ROOR ---
Patient Name: Shilpa Nicholas Procedure Date: 10/07/2020 2:06 PM Date of : 1980 Age: 39 Room: [facility] Gender: Female Note Status: Finalized Procedure: Upper GI endoscopy Indications: Dyspepsia, Heartburn, Gastroparesis Providers: Myron Ladd MD Referring MD: LEEANN Campbell Requesting Provider: Medicines: Monitored Anesthesia Care Complications: No immediate complications. Procedure: Pre-Anesthesia Assessment: - The heart rate, respiratory rate, oxygen saturations, blood pressure, adequacy of pulmonary ventilation, and response to care were monitored throughout the procedure. The Endoscope was introduced through the mouth, and advanced to the second part of duodenum. The upper GI endoscopy was accomplished without difficulty. The patient tolerated the procedure well. Findings: Mildly severe esophagitis was found at the gastroesophageal junction. Biopsies were taken with a cold forceps for histology. The entire examined stomach was normal. Biopsies were taken with a cold forceps for Helicobacter pylori testing. The examined duodenum was normal. Impression: - Mildly severe reflux esophagitis. Rule out Granado's esophagus. Biopsied. - Normal stomach. Biopsied. - Normal examined duodenum. Recommendation: - Gastroparesis diet: - Eat smaller, more frequent meals throughout the day. - Low fat diet. - Liquid/soft foods are tolerated better than solid foods. - Low fiber/well cooked vegetables are tolerated better than high fiber/fibrous foods/raw vegetables. - Avoid medications that inhibit gastric/intestinal motility such as narcotic medications. - Check Thyroid function & HbA1C (will mail you lab slips). Procedure Code(s): --- Professional --- 81214, Esophagogastroduodenoscopy, flexible, transoral; with biopsy, single or multiple Diagnosis Code(s): --- Professional --- K31.84, Gastroparesis R12, Heartburn R10.13, Epigastric pain K21.0, Gastro-esophageal reflux disease with esophagitis CPT copyright 2019 [employer]. All rights reserved. The codes documented in this report are preliminary and upon upper cutter machine review may be revised to meet current compliance requirements. Myron Ladd MD Myron Ladd MD 10/07/2020 2:24:18 PM Electronically signed by Myron Ladd MD Number of Addenda: 0 Note Initiated On: 10/07/2020 2:06 PM Estimated Blood Loss: Estimated blood loss: none.
[2020-10-07 14:45] VITALS: BP 140/67
== END 2020-10-07 14:50 | disposition home or self-care (01) ==
LOC: M OPP 12:03
PROVIDERS: ATTEND Internal Medicine Gastroenterology
DX: K31.84 Gastroparesis (principal); K26.0 Acute duodenal ulcer with hemorrhage; K30 Functional dyspepsia; M32.9 Systemic lupus erythematosus, unspecified; R07.9 Chest pain, unspecified; Z88.5 Allergy status to narcotic agent; Z88.8 Allergy status to other drugs, medicaments and biological substances
CPT/HCPCS: 43239; 88305; J2405; J3010

== ENCOUNTER → 2020-10-28 | Outpatient (CLI) | payer SELFPAY ==
[~2020-10-28] MED LIST changes: -NS 1,000 ML IV ONE; -fentaNYL 100 MCG/2 ML INJECTION (J3010) As Ordered ONE
[2020-10-28 13:39] LABS: HEMOGLOBIN A1c 5.5 %
[2020-10-28 13:51] LABS: FREE T4 1.17 NG/DL (0.76-1.46); THYROID STIMULATING HORMONE 0.907 uIU/ML (0.358-3.740)
== END ==
LOC: M LAB 11:54
PROVIDERS: ATTEND Internal Medicine Gastroenterology
DX: K31.84 Gastroparesis (principal)

== ENCOUNTER → 2020-11-24 | Outpatient (CLI) | payer SELFPAY ==
--- NOTE | 2020-11-24 09:44 | REP ---
INDICATION: PAIN IN RIGHT KNEE COMPARISON: None. TECHNIQUE: AP, lateral, bilateral oblique and sunrise views. FINDINGS: Subtle increased sclerosis along the medial tibial plateau with subtle joint space narrowing is appreciated. [place] view demonstrates sclerosis and fraying along the anterior patellar margin. No further significant degenerative changes are identified. No evidence for acute or healed injury. No obvious effusion. IMPRESSION: Mild early arthritic changes.. <Electronically signed by Geovanni Avina > 11/24/20 0912
== END ==
LOC: M ADAMS 09:06
PROVIDERS: ATTEND Physician Assistant
DX: M17.11 Unilateral primary osteoarthritis, right knee (principal)

== ENCOUNTER → 2021-06-28 | Outpatient (REF) | payer BC ==
[~2021-06-28] MED LIST changes: -FLUC150T PO; +FLUC150T9 PO
[2021-06-28 13:09] LABS: BASO # 0.1 10^3/uL (0.0-0.2); EOS # 0.3 10^3/uL (0.0-0.5); EOS % 3.5 % (0.0-3.0); HEMATOCRIT 42.8 % (36.0-47.0); HEMOGLOBIN 14.3 g/dl (12.0-15.5); LYMPH # 2.6 10^3/uL (1.5-5.0); MEAN CORPUSCULAR HGB CONC 33.4 g/dl (32.0-36.5); MEAN CORPUSCULAR VOLUME 95.7 fl (80.0-96.0); MONO # 0.4 10^3/uL (0.0-0.8); NEUTROPHILS # 3.9 10^3/uL (1.5-8.5); NEUTROPHILS % 53.2 % (36.0-66.0); PLATELET COUNT, AUTOMATED 208 10^3/uL (150-450); RED BLOOD COUNT 4.47 10^6/uL (4.00-5.40); WHITE BLOOD COUNT 7.3 10^3/uL (4.0-10.0)
[2021-06-28 13:40] LABS: ALBUMIN 3.8 GM/DL (3.2-5.2); ALT/SGPT 91 U/L (12-78); BILIRUBIN,TOTAL 0.4 MG/DL (0.2-1.0); BLOOD UREA NITROGEN 6 MG/DL (7-18); CARBON DIOXIDE LEVEL 23 MEQ/L (21-32); CHLORIDE LEVEL 109 MEQ/L (98-107); COMPLEMENT C3 137 MG/DL (90-180); COMPLEMENT C4 32 MG/DL (10-40); CREATININE FOR GFR 0.85 MG/DL (0.55-1.30); GLOMERULAR FILTRATION RATE > 60.0 (>60); GLUCOSE, FASTING 125 MG/DL (70-100); POTASSIUM SERUM 3.9 MEQ/L (3.5-5.1); SODIUM LEVEL 140 MEQ/L (136-145); TOTAL PROTEIN 7.4 GM/DL (6.4-8.2)
[2021-06-30 09:41] LABS: DRVV SCREEN 43.9 SEC
[2021-06-30 09:42] LABS: PTT LUPUS TYPE ANTICOAG SCREEN 1.2 (0-1.2)
[2021-06-30 09:50] LABS: DRVV CONFIRM 39.2 SEC
[2021-06-30 09:53] LABS: NORMALIZED RATIO 1.2 (0.00-1.20)
[2021-06-30 23:08] LABS: ANA (HEP2) Positive (.); ANTI DS-DNA AB Negative (Negative); CARDIOLIPIN IGA ANTIBODY <9 APL U/mL (0-11); CARDIOLIPIN IGG ANTIBODY <9 GPL U/mL (0-14); CARDIOLIPIN IGM ANTIBODY 25 MPL U/mL (0-12); CYCLIC CITRULLINATED PEPTIDE 4 units (0-19)
[2021-07-02 13:12] LABS: HEXAGONAL PHASE PHOSPHOLIPID 4 sec (0-11)
== END ==
LOC: M SFHCADAM 08:54
PROVIDERS: ATTEND Physician Assistant Medical
DX: M32.9 Systemic lupus erythematosus, unspecified (principal)

== ENCOUNTER → 2021-07-13 | Outpatient (REF) | payer BC | LOC: M SFHCPLAZ 16:57 | PROVIDERS: ATTEND Physician Assistant | DX: R10.9 Unspecified abdominal pain (principal) ==

== ENCOUNTER → 2021-08-18 | Outpatient (CLI) | payer BC | LOC: M RAD 08:23 | PROVIDERS: ATTEND Family Medicine | DX: R10.11 Right upper quadrant pain (principal) ==

== ENCOUNTER → 2021-08-30 | Outpatient (REF) | payer BC ==
[2021-08-30 14:33] LABS: FERRITIN 140 NG/ML (8-252); IRON (FE) 55 UG/DL (50-170); PERCENT SATURATION 15.8 % (13.2-45.0); TOTAL IRON BINDING CAPACITY 348 UG/DL (250-450)
[2021-08-30 14:41] LABS: HEPATITIS B SURFACE ANTIBODY NEGATIVE (POSITIVE)
[2021-08-30 14:51] LABS: HEPATITIS B SURFACE ANTIGEN NEGATIVE (NEGATIVE)
[2021-08-30 15:20] LABS: HEPATITIS B CORE ANTIBODY IGM NEGATIVE (NEGATIVE); HIV 1&2 SCREEN CENTAUR NEGATIVE (NEGATIVE)
== END ==
LOC: M SFHCADAM 08:07
PROVIDERS: ATTEND Family Medicine
DX: K76.0 Fatty (change of) liver, not elsewhere classified (principal); R05.9 Cough, unspecified; R61 Generalized hyperhidrosis
CPT/HCPCS: 82384; 82390; 82525; 82728; 82784; 82787; 83550; 86376; 86480; 86705; 86706; 86708; 87340; 87389; G0472

== ENCOUNTER → 2021-10-28 | Outpatient (CLI) | payer BC | LOC: M ADAMS 14:54 | PROVIDERS: ATTEND Family Medicine | DX: M25.551 Pain in right hip (principal) ==

== ENCOUNTER → 2021-12-29 | Outpatient (CLI) | payer BC ==
[2021-12-29 12:36] LABS: BASO # 0.1 10^3/uL (0.0-0.2); BASO % 0.7 % (0.0-1.0); EOS # 0.2 10^3/uL (0.0-0.5); EOS % 2.1 % (0.0-3.0); HEMATOCRIT 44.7 % (36.0-47.0); LYMPH # 3.5 10^3/uL (1.5-5.0); LYMPH % 42.2 % (24.0-44.0); MEAN CORPUSCULAR HEMOGLOBIN 31.8 pg (27.0-33.0); MEAN CORPUSCULAR HGB CONC 33.6 g/dl (32.0-36.5); MEAN CORPUSCULAR VOLUME 94.9 fl (80.0-96.0); MONO # 0.5 10^3/uL (0.0-0.8); MONO % 5.4 % (2.0-8.0); NEUTROPHILS # 4.1 10^3/uL (1.5-8.5); NEUTROPHILS % 49.2 % (36.0-66.0); PLATELET COUNT, AUTOMATED 221 10^3/uL (150-450); RED BLOOD COUNT 4.71 10^6/uL (4.00-5.40); WHITE BLOOD COUNT 8.4 10^3/uL (4.0-10.0)
[2021-12-29 13:22] LABS: ALBUMIN 3.9 GM/DL (3.2-5.2); ALT/SGPT 62 U/L (12-78); BILIRUBIN,TOTAL 0.5 MG/DL (0.2-1.0); BLOOD UREA NITROGEN 8 MG/DL (7-18); CALCIUM LEVEL 9.1 MG/DL (8.5-10.1); CARBON DIOXIDE LEVEL 23 MEQ/L (21-32); CHLORIDE LEVEL 107 MEQ/L (98-107); FREE T4 1.17 NG/DL (0.76-1.46); GLOMERULAR FILTRATION RATE > 60.0 (>58); GLUCOSE, FASTING 94 MG/DL (70-100); POTASSIUM SERUM 4.1 MEQ/L (3.5-5.1); SODIUM LEVEL 136 MEQ/L (136-145); THYROID STIMULATING HORMONE 0.976 uIU/ML (0.358-3.740); TOTAL PROTEIN 7.9 GM/DL (6.4-8.2)
== END ==
LOC: M LAB 11:01
PROVIDERS: ATTEND Internal Medicine Gastroenterology
DX: R10.2 Pelvic and perineal pain (principal)

== ENCOUNTER → 2022-01-12 | Outpatient (CLI) | payer BC | LOC: M ADAMS 13:37 | PROVIDERS: ATTEND Physician Assistant | DX: M79.671 Pain in right foot (principal) ==

== ENCOUNTER → 2022-01-24 | Outpatient (CLI) | payer BC ==
[~2022-01-24] MED LIST changes: +GASTROGRAFIN SOLUTION 30ML As Ordered ONE; +ISOVUE-370 76% 100ML VIAL As Ordered ONE
== END ==
LOC: M RAD 15:01
PROVIDERS: ATTEND Internal Medicine Gastroenterology
DX: R10.31 Right lower quadrant pain (principal); R10.815 Periumbilic abdominal tenderness; K35.80 Unspecified acute appendicitis

== ENCOUNTER → 2022-02-20 | Outpatient (CLI) | payer BC ==
[~2022-02-20] MED LIST changes: -GASTROGRAFIN SOLUTION 30ML As Ordered ONE; -ISOVUE-370 76% 100ML VIAL As Ordered ONE
== END ==
LOC: M LABSMTC 11:27
PROVIDERS: ATTEND Anesthesiology
DX: Z01.812 Encounter for preprocedural laboratory examination (principal); Z20.822 Contact with and (suspected) exposure to COVID-19

== ENCOUNTER 2022-02-22 08:01 | Day surgery (SDC) | payer BC ==
[~2022-02-22] VITALS: Ht 157.5 cm; Wt 78.5 kg
[~2022-02-22 08:01] MED LIST changes: +NS 1,000 ML IV ONE
[2022-02-22] MEDS ORDERED: propofoL 500 MG/50 ML VIAL As Ordered ONE (08:59)
[2022-02-22] MEDS ORDERED: LIDOCAINE 2% 100MG/5ML SDV (FOR ANES.) As Ordered ONE (09:00)
[2022-02-22 09:46] VITALS: BP 105/58
== END 2022-02-22 10:00 | disposition home or self-care (01) ==
LOC: M OPP 08:01
PROVIDERS: ATTEND Internal Medicine Gastroenterology
DX: D12.0 Benign neoplasm of cecum (principal); K64.8 Other hemorrhoids; Z79.899 Other long term (current) drug therapy; Z88.5 Allergy status to narcotic agent; Z88.8 Allergy status to other drugs, medicaments and biological substances; F17.200 Nicotine dependence, unspecified, uncomplicated; F32.9 Major depressive disorder, single episode, unspecified; M32.9 Systemic lupus erythematosus, unspecified; J45.909 Unspecified asthma, uncomplicated; I50.9 Heart failure, unspecified; K31.84 Gastroparesis; G43.909 Migraine, unspecified, not intractable, without status migrainosus

== ENCOUNTER → 2022-04-11 | Outpatient (CLI) | payer BC ==
[~2022-04-11] MED LIST changes: -NS 1,000 ML IV ONE
== END ==
LOC: M WHC 15:55
PROVIDERS: ATTEND Obstetrics & Gynecology
DX: Z12.31 Encounter for screening mammogram for malignant neoplasm of breast (principal); N63.11 Unspecified lump in the right breast, upper outer quadrant; N63.21 Unspecified lump in the left breast, upper outer quadrant

== ENCOUNTER → 2022-05-17 | Outpatient (CLI) | payer BC | LOC: M WHC 15:08 | PROVIDERS: ATTEND Obstetrics & Gynecology | DX: R92.2 Inconclusive mammogram (principal); N60.12 Diffuse cystic mastopathy of left breast; N60.11 Diffuse cystic mastopathy of right breast | CPT/HCPCS: 76641; 77066; G0279 ==

== ENCOUNTER → 2022-05-24 | Outpatient (CLI) | payer BC ==
[~2022-05-24] MED LIST changes: +**SFHN** LIDOCAINE 1% MDV 20ML VIAL ONE; +**SFHN** SODIUM BICARBONATE 8.4% 10MEQ 10ML VIAL ONE
[2022-05-24 13:26] VITALS: BP 110/78
== END ==
LOC: M WHCPRO 12:34
PROVIDERS: ATTEND Obstetrics & Gynecology
DX: R92.8 Other abnormal and inconclusive findings on diagnostic imaging of breast (principal); N63.14 Unspecified lump in the right breast, lower inner quadrant; R92.0 Mammographic microcalcification found on diagnostic imaging of breast

== ENCOUNTER → 2022-10-17 | Outpatient (CLI) | payer BC ==
[~2022-10-17] MED LIST changes: -**SFHN** LIDOCAINE 1% MDV 20ML VIAL ONE; -**SFHN** SODIUM BICARBONATE 8.4% 10MEQ 10ML VIAL ONE; +DICL100G10 TOP; -DICL1GEL3 TOP; +DICY-61 PO; -DICY10CA13 PO
== END ==
LOC: M PLAIMG 15:06
PROVIDERS: ATTEND Physician Assistant
DX: F33.1 Major depressive disorder, recurrent, moderate (principal); R94.02 Abnormal brain scan

== ENCOUNTER → 2022-11-07 | Outpatient (CLI) | payer BC ==
[2022-11-07 17:02] LABS: BASO % 0.4 % (0.0-1.0); EOS # 0.1 10^3/uL (0.0-0.5); HEMATOCRIT 39.6 % (36.0-47.0); HEMOGLOBIN 13.7 g/dl (12.0-15.5); LYMPH # 3.8 10^3/uL (1.5-5.0); MEAN CORPUSCULAR HEMOGLOBIN 31.4 pg (27.0-33.0); MEAN CORPUSCULAR HGB CONC 34.6 g/dl (32.0-36.5); MEAN CORPUSCULAR VOLUME 90.8 fl (80.0-96.0); MONO # 0.6 10^3/uL (0.0-0.8); MONO % 6.1 % (2.0-8.0); NEUTROPHILS # 4.6 10^3/uL (1.5-8.5); NEUTROPHILS % 50.4 % (36.0-66.0); PLATELET COUNT, AUTOMATED 242 10^3/uL (150-450); RED BLOOD COUNT 4.36 10^6/uL (4.00-5.40); WHITE BLOOD COUNT 9.1 10^3/uL (4.0-10.0)
[2022-11-07 17:18] LABS: ERYTHROCYTE SEDIMENTATION RATE 19 mm/hr (0-20)
[2022-11-07 17:21] LABS: URIC ACID 4.5 MG/DL (3.1-7.8)
[2022-11-07 17:24] LABS: ALKALINE PHOSPHATASE 62 U/L (46-116); ALT/SGPT 16 U/L (7.0-40); AST/SGOT 9 U/L (<34); BILIRUBIN,TOTAL 0.5 MG/DL (0.3-1.2); BLOOD UREA NITROGEN 8 MG/DL (9-23); C REACTIVE PROTEIN QUANTITATIV < 0.40 MG/DL (<1.0); CALCIUM LEVEL 9.3 MG/DL (8.5-10.1); CARBON DIOXIDE LEVEL 24 MMOL/L (20-31); CHLORIDE LEVEL 107 MMOL/L (98-107); CREATININE FOR GFR 0.86 MG/DL (0.55-1.30); GLOMERULAR FILTRATION RATE > 60.0 (>58); GLUCOSE, FASTING 94 MG/DL (60-100); POTASSIUM SERUM 3.9 MMOL/L (3.5-5.1); RHEUMATOID FACTOR QUANT 5.2 IU/ML (<14); SODIUM LEVEL 140 MMOL/L (136-145); TOTAL PROTEIN 7.2 G/DL (5.7-8.2)
== END ==
LOC: M RAD 16:00
PROVIDERS: ATTEND Physician Assistant
DX: M32.9 Systemic lupus erythematosus, unspecified (principal)

== ENCOUNTER → 2022-11-22 | Outpatient (CLI) | payer BC | LOC: M RAD 09:49 | PROVIDERS: ATTEND Physician Assistant | DX: M32.9 Systemic lupus erythematosus, unspecified (principal) ==

== ENCOUNTER → 2022-11-28 | Outpatient (CLI) | payer BC | LOC: M WHC 14:53 | PROVIDERS: ATTEND Obstetrics & Gynecology | DX: R92.2 Inconclusive mammogram (principal) ==

== ENCOUNTER → 2023-03-27 | Outpatient (REF) | payer BC | LOC: M SFHCADAM 10:45 | PROVIDERS: ATTEND Family Medicine | DX: J02.9 Acute pharyngitis, unspecified (principal) ==

== ENCOUNTER 2023-08-01 15:39 | Inpatient (IN) | payer BC ==
[~2023-08-01] VITALS: Ht 157.5 cm; Wt 66.6 kg
[2023-08-01] MEDS ORDERED: ERGO500029 PO (17:53)
[2023-08-01 17:55] LABS: HEMOGLOBIN 14.3 g/dl (12.0-15.5); MEAN CORPUSCULAR HEMOGLOBIN 32.4 pg (27.0-33.0); MEAN CORPUSCULAR HGB CONC 34.9 g/dl (32.0-36.5); PLATELET COUNT, AUTOMATED 206 10^3/uL (150-450); RED BLOOD COUNT 4.41 10^6/uL (4.00-5.40); WHITE BLOOD COUNT 10.3 10^3/uL (4.0-10.0)
[2023-08-01] MEDS ORDERED: CVS1CHW8 PO (17:59)
[2023-08-01] MEDS ORDERED: HOME MED LIST COMPLETE! XX SCH (18:00)
[2023-08-01 18:25] LABS: AMPHETAMINES LEVEL URINE NEGATIVE (NEGATIVE); BARBITURATES URINE NEGATIVE (NEGATIVE); BENZODIAZEPINES URINE NEGATIVE (NEGATIVE); COCAINE METABOLITE URINE NEGATIVE (NEGATIVE); METHADONE URINE NEGATIVE (NEGATIVE); OPIATES URINE NEGATIVE (NEGATIVE); PHENCYCLIDINE URINE NEGATIVE (NEGATIVE)
[2023-08-01 18:26] LABS: CANNABINOIDS URINE POSITIVE (NEGATIVE)
[2023-08-01 18:27] LABS: ETHYL ALCOHOL (ETHANOL) 0.005 % (0.000-0.010); HCG, SERUM QUALITATIVE NEGATIVE (NEGATIVE)
[2023-08-01 18:29] LABS: ALBUMIN 3.7 G/DL (3.2-5.2); ALKALINE PHOSPHATASE 54 U/L (46-116); ALT/SGPT 26 U/L (7.0-40); AST/SGOT 35 U/L (<34); BILIRUBIN,DIRECT 0.1 MG/DL (<0.4); BILIRUBIN,TOTAL 0.4 MG/DL (0.3-1.2); BLOOD UREA NITROGEN 15 MG/DL (9-23); CALCIUM LEVEL 9.2 MG/DL (8.5-10.1); CARBON DIOXIDE LEVEL 25 MMOL/L (20-31); CHLORIDE LEVEL 111 MMOL/L (98-107); CREATININE FOR GFR 0.83 MG/DL (0.55-1.30); GLOMERULAR FILTRATION RATE > 60.0 (>58); GLUCOSE, FASTING 90 MG/DL (60-100); POTASSIUM SERUM 4.3 MMOL/L (3.5-5.1); SALICYLATE LEVEL < 3.0 MG/DL (<30); SODIUM LEVEL 140 MMOL/L (136-145); TOTAL PROTEIN 6.7 G/DL (5.7-8.2)
[2023-08-01 18:31] LABS: THYROID STIMULATING HORMONE 0.648 uIU/ML (0.55-4.78)
[2023-08-01] MEDS ORDERED: MOM 30ML SUSPENSION UDC PO PRN (20:55)
[2023-08-01] MEDS ORDERED: ACETAMINOPHEN TAB 650MG DOSE (2X325MG) PO PRN (20:55)
[2023-08-01] MEDS ORDERED: IBUPROFEN 400MG TAB PO PRN (20:55)
[2023-08-01] MEDS ORDERED: MAALOX 30 ML SUSP *UDC PO PRN (20:55)
[2023-08-01] MEDS ORDERED: traZODone 50 MG TAB PO PRN (20:55)
[2023-08-01] MEDS: OMEPRAZOLE 20MG CAP PO ONE (21:56)
[2023-08-01 22:40] VITALS: BP 149/63; TEMP 97.8; O2SAT 96
[2023-08-02 06:20] VITALS: BP 121/61; TEMP 98.9; O2SAT 98
[2023-08-02] MEDS ORDERED: OMEPRAZOLE 20MG CAP PO SCH (09:00)
[2023-08-02] MEDS: ESCITALOPRAM OXALATE 10 MG TAB (LEXAPRO) PO SCH (10:46)
[2023-08-02] MEDS: MULTIVITAMINS/MINERALS THERAP 1 TAB PO SCH (10:46)
[2023-08-02] MEDS ORDERED: NICO21PAT TOP (11:00)
[2023-08-02] MEDS ORDERED: LEXA1TAB PO (11:00)
[2023-08-03] MEDS ORDERED: OMEPRAZOLE 20MG CAP PO SCH (09:00)
== END 2023-08-02 13:05 | disposition home or self-care (01) | DRG 755 ==
LOC: M ED 15:39 → M ED INP 20:54 → M PSY 22:16
PROVIDERS: ADMIT Student in an Organized Health Care Education/Training Program; ATTEND Student in an Organized Health Care Education/Training Program
DX: F43.22 Adjustment disorder with anxiety (principal); R45.851 Suicidal ideations; F17.210 Nicotine dependence, cigarettes, uncomplicated; F12.90 Cannabis use, unspecified, uncomplicated; Z88.5 Allergy status to narcotic agent; Z88.8 Allergy status to other drugs, medicaments and biological substances; Z79.899 Other long term (current) drug therapy; K21.9 Gastro-esophageal reflux disease without esophagitis; K44.9 Diaphragmatic hernia without obstruction or gangrene; K64.8 Other hemorrhoids; G43.909 Migraine, unspecified, not intractable, without status migrainosus; Z86.711 Personal history of pulmonary embolism; D72.829 Elevated white blood cell count, unspecified

== ENCOUNTER → 2023-10-04 | Outpatient (REF) | payer BC ==
[~2023-10-04] MED LIST changes: +CVS1CHW8 PO; +ERGO500029 PO; +NICO21PAT TOP
[2023-10-04 13:36] LABS: APPEARANCE, URINE HAZY (CLEAR); BACTERIA, URINE AUTO NEGATIVE (NEGATIVE); BILIRUBIN, URINE AUTO NEGATIVE (NEGATIVE); BLOOD, URINE BLOOD NEGATIVE (NEGATIVE); COLOR, URINE YELLOW (YELLOW); GLUCOSE, URINE (UA) AUTO NEGATIVE (NEGATIVE); KETONE, URINE AUTO NEGATIVE (NEGATIVE); LEUKOCYTE ESTERASE, URINE AUTO NEGATIVE (NEGATIVE); MUCUS, URINE SMALL (NEGATIVE); NITRITE, URINE AUTO NEGATIVE (NEGATIVE); PROTEIN, URINE AUTO NEGATIVE (NEGATIVE); RBC, URINE AUTO 1 /HPF (0-3); SPECIFIC GRAVITY URINE AUTO 1.018 (1.002-1.035); SQUAMOUS EPITHELIAL CELL UR AU 4 /HPF (0-6); UROBILINOGEN, URINE AUTO 0.2 mg/dL (0.0-2.0); WBC, URINE AUTO 1 /HPF (0-3)
== END ==
LOC: M SFHCADAM 10:51
PROVIDERS: ATTEND Physician Assistant
DX: R30.0 Dysuria (principal)

== ENCOUNTER → 2023-10-09 | Outpatient (CLI) | payer BC, SELFPAY ==
[2023-10-09 16:20] LABS: Trichomonas vaginalis (AMP) NOT DETECTED (NEGATIVE)
[2023-10-09 16:44] LABS: GC DNA AMPLIFICATION NEGATIVE (NEGATIVE)
[2023-10-10 09:07] LABS: APPEARANCE, URINE HAZY (CLEAR); BACTERIA, URINE AUTO NEGATIVE (NEGATIVE); BILIRUBIN, URINE AUTO NEGATIVE (NEGATIVE); BLOOD, URINE BLOOD 1+ (NEGATIVE); COLOR, URINE YELLOW (YELLOW); GLUCOSE, URINE (UA) AUTO NEGATIVE (NEGATIVE); KETONE, URINE AUTO NEGATIVE (NEGATIVE); LEUKOCYTE ESTERASE, URINE AUTO NEGATIVE (NEGATIVE); MUCUS, URINE SMALL (NEGATIVE); NITRITE, URINE AUTO NEGATIVE (NEGATIVE); PROTEIN, URINE AUTO NEGATIVE (NEGATIVE); RBC, URINE AUTO 2 /HPF (0-3); SPECIFIC GRAVITY URINE AUTO 1.021 (1.002-1.035); SQUAMOUS EPITHELIAL CELL UR AU 4 /HPF (0-6); UROBILINOGEN, URINE AUTO 0.2 mg/dL (0.0-2.0); WBC, URINE AUTO 1 /HPF (0-3)
[2023-10-13 14:22] LABS: HSV SOURCE Serum; HSV-1 DNA Not Detected (Not Detected); HSV-2 DNA Not Detected (Not Detected)
== END ==
LOC: M PLALAB 13:55
PROVIDERS: ATTEND Physician Assistant Medical
DX: N76.0 Acute vaginitis (principal)

== ENCOUNTER → 2024-06-18 | Outpatient (CLI) | payer BC ==
[2024-06-18 16:59] LABS: HEMATOCRIT 37.6 % (36.0-47.0); MEAN CORPUSCULAR HEMOGLOBIN 31.6 pg (27.0-33.0); MEAN CORPUSCULAR HGB CONC 34.6 g/dl (32.0-36.5); MEAN CORPUSCULAR VOLUME 91.3 fl (80.0-96.0); PLATELET COUNT, AUTOMATED 185 10^3/uL (150-450); RED BLOOD COUNT 4.12 10^6/uL (4.00-5.40)
[2024-06-18 17:26] LABS: FREE T4 1.23 NG/DL (0.89-1.76)
[2024-06-18 17:27] LABS: FOLLICLE STIMULATING HORMONE 9.3 mIU/ML; THYROID STIMULATING HORMONE 1.195 uIU/ML (0.55-4.78)
[2024-06-18 18:16] LABS: ATYPICAL LYMPH 1 % (0-5); EOSINOPHILS 3 % (0-3); LYMPHOCYTES 48 % (16-44); MONOCYTES 2 % (0-5); NEUTROPHILS 46 % (28-66); PLATELET ESTIMATE NORMAL (NORMAL)
[2024-06-19 07:04] LABS: WHITE BLOOD COUNT 8.9 10^3/uL (4.0-10.0)
== END ==
LOC: M RAD 15:59
PROVIDERS: ATTEND Obstetrics & Gynecology
DX: N92.1 Excessive and frequent menstruation with irregular cycle (principal)